=== PATIENT | female | born 1985 | race Two or more races ===

== ENCOUNTER 2021-08-23 09:04 | Emergency (ER) | payer OTHER ==
[~2021-08-23] VITALS: Ht 167.6 cm; Wt 90.7 kg
[2021-08-23 09:15] VITALS: BP 128/90
--- NOTE | 2021-08-23 09:17 | NUR ---
BIBS FOR C/O RIGHT EAR PAIN 04/12 AND WATERY DISCHARGE FROM RIGHT EAR STARTED LAST NIGHT. TESTED COVID + 08/21/21. IN ROOM AIR AND DENIES SOB. RESPIRATION REGULAR AND UNLABORED. WILL CONTINUE TO MONITOR THE PATIENT.
--- NOTE | 2021-08-23 09:25 | NUR ---
DR ROSEN ASSESSING THE PATIENT.
[2021-08-23] MEDS ORDERED: NEOM10DR11 OT (09:30)
[2021-08-23] MEDS ORDERED: NEOM/POLY B SULF/HC OTIC SUSP 10 ML BOTTLE RIGHT EAR ONE (09:30)
--- NOTE | 2021-08-23 09:39 | NUR ---
Patient discharged to home in stable condition. Written and verbal after care instructions given. Patient verbalizes understanding of instruction.
== END 2021-08-23 09:40 | disposition home or self-care (01) ==
LOC: ER 09:09
DX: H60.91 Unspecified otitis externa, right ear (principal); H92.11 Otorrhea, right ear; Z79.899 Other long term (current) drug therapy